=== PATIENT | female | born 1945 | race American Indian/Alaskan Native ===

== ENCOUNTER 2017-04-24 20:14 | Inpatient (IN) | payer MEDICARE, MEDICAID ==
--- NOTE | 2017-04-24 20:38 | Emergency Department Report ---
ED Altered Mental Status HPI - General Stated Complaint: AMS Time Seen by Provider: 04/24/17 20:27 Source: patient, EMS, old records reviewed - History of Present Illness Initial Comments: Patient is 71 years old female history of coronary artery disease, diabetes and schizophrenia. Presented to the ER for evaluation of decreased responsiveness at the [facility], [facility] staff stated that she was difficult to arouse for a few minutes, they stated she usually talkative and aggressive with the staff. When EMS arrived patient is alert oriented and in no acute distress. His stroke screen was negative. When patient arrived in the ER she is completely alert, oriented to time place and person. She denied any headache, focal weakness, focal numbness, difficulty speaking, no bowel or bladder incontinence. Patient denied chest pain. MD Complaint: altered mental status, decreased responsiveness - Related Data Home Medications Medication Instructions Recorded Confirmed Last Taken Furosemide [Lasix] 40 mg PO DAILY 10/23/14 04/12/15 10/23/14 Spironolactone [Aldactone] 25 mg PO BID 10/23/14 04/12/15 10/23/14 Previous Rx's Medication Instructions Recorded Last Taken Type Alendronate Sodium [Fosamax] 70 mg PO QWEEK #7 tablet 04/13/15 Unknown Rx Aspirin [Aspirin BABY CHEW TAB] 81 mg PO QDAY #30 tab.chew 04/13/15 Unknown Rx Carvedilol [Coreg] 25 mg PO BID #60 tablet 04/13/15 Unknown Rx Digoxin [Lanoxin] 0.125 mg PO DAILY #30 tablet 04/13/15 Unknown Rx Ferrous Sulfate [Feosol 325 MG tab] 325 mg PO QDAY #30 tablet 04/13/15 Unknown Rx HYDROcodone/APAP 5-325 [[place]iff[place] 1 each PO Q6HR PRN #60 tablet 04/13/15 Unknown Rx 5-325 mg TAB] ISOSORBIDE MONOnitrate [Imdur ER] 30 mg PO DAILY #30 tablet 04/13/15 Unknown Rx Insulin Glargine [Lantus VIAL] 35 units SUB-Q QHS #30 units 04/13/15 Unknown Rx Mirtazapine [Remeron] 30 mg PO QHS #30 tab.rapdis 04/13/15 Unknown Rx Omeprazole [PriLOSEC] 20 mg PO BID #60 capsule. 04/13/15 Unknown Rx Pravastatin Sodium [Pravastatin] 10 mg PO QDAY #30 tablet 04/13/15 Unknown Rx clonazePAM [KlonoPIN] 0.5 mg PO Q6H PRN #60 tablet 04/13/15 Unknown Rx hydrALAZINE [Apresoline TAB] 100 mg PO TID #90 tab 04/13/15 Unknown Rx risperiDONE [RisperDAL] 0.25 mg PO BID #60 tablet 04/13/15 Unknown Rx Allergies Allergy/AdvReac Type Severity Reaction Status Date / Time No Known Allergies Allergy Verified 04/11/15 17:17 ED Review of Systems ROS: Stated complaint: AMS Other details as noted in HPI Comment: All other systems reviewed and negative Constitutional: denies: chills, fever Respiratory: denies: cough, orthopnea, shortness of breath, SOB with exertion, SOB at rest, wheezing Cardiovascular: denies: chest pain, palpitations, dyspnea on exertion, orthopnea , edema, syncope, paroxysmal nocturnal dyspnea Gastrointestinal: denies: abdominal pain, nausea, vomiting, diarrhea, constipation, hematemesis, melena, hematochezia Genitourinary: denies: urgency, frequency, hematuria Neurological: denies: headache, weakness, numbness, paresthesias, confusion ED Past Medical Hx - Past Medical History Hx Hypertension: Yes Hx Heart Attack/AMI: Yes Hx Congestive Heart Failure: Yes Hx Diabetes: Yes Hx Pulmonary Embolism: Yes Hx GERD: Yes Hx Seizures: No Additional medical history: HLD, CAD. ANEMIA - Surgical History Hx Pacemaker: Yes Additional Surgical History: pacemaker, bypass - Social History Smoking Status: Current Every Day Smoker - Medications Home Medications: Home Medications Medication Instructions Recorded Confirmed Last Taken Type Furosemide [Lasix] 40 mg PO DAILY 10/23/14 04/12/15 10/23/14 History Spironolactone [Aldactone] 25 mg PO BID 10/23/14 04/12/15 10/23/14 History Alendronate Sodium [Fosamax] 70 mg PO QWEEK #7 tablet 04/13/15 Unknown Rx Aspirin [Aspirin BABY CHEW TAB] 81 mg PO QDAY #30 tab.chew 04/13/15 Unknown Rx Carvedilol [Coreg] 25 mg PO BID #60 tablet 04/13/15 Unknown Rx Digoxin [Lanoxin] 0.125 mg PO DAILY #30 tablet 04/13/15 Unknown Rx Ferrous Sulfate [Feosol 325 MG tab] 325 mg PO QDAY #30 tablet 04/13/15 Unknown Rx HYDROcodone/APAP 5-325 [[place] 1 each PO Q6HR PRN #60 tablet 04/13/15 Unknown Rx 5-325 mg TAB] ISOSORBIDE MONOnitrate [Imdur ER] 30 mg PO DAILY #30 tablet 04/13/15 Unknown Rx Insulin Glargine [Lantus VIAL] 35 units SUB-Q QHS #30 units 04/13/15 Unknown Rx Mirtazapine [Remeron] 30 mg PO QHS #30 tab.rapdis 04/13/15 Unknown Rx Omeprazole [PriLOSEC] 20 mg PO BID #60 capsule.dr 04/13/15 Unknown Rx Pravastatin Sodium [Pravastatin] 10 mg PO QDAY #30 tablet 04/13/15 Unknown Rx clonazePAM [KlonoPIN] 0.5 mg PO Q6H PRN #60 tablet 04/13/15 Unknown Rx hydrALAZINE [Apresoline TAB] 100 mg PO TID #90 tab 04/13/15 Unknown Rx risperiDONE [RisperDAL] 0.25 mg PO BID #60 tablet 04/13/15 Unknown Rx ED Physical Exam - General General appearance: alert, in no apparent distress - Head Head exam: Present: atraumatic, normocephalic, normal inspection - Eye Eye exam: Present: normal appearance, PERRL, EOMI - ENT ENT exam: Present: normal exam, normal orophraynx, mucous membranes moist - Neck Neck exam: Present: normal inspection, full ROM. Absent: tenderness, meningismus, lymphadenopathy - Respiratory Respiratory exam: Present: normal lung sounds bilaterally. Absent: respiratory distress, wheezes, rales, rhonchi, stridor, chest wall tenderness, accessory muscle use, decreased breath sounds, prolonged expiratory - Cardiovascular Cardiovascular Exam: Present: regular rate, normal rhythm, normal heart sounds - GI/Abdominal GI/Abdominal exam: Present: soft, normal bowel sounds. Absent: distended, tenderness, guarding, rebound, rigid, organomegaly, mass, bruit, pulsatile mass , hernia - Extremities Exam Extremities exam: Present: normal inspection, full ROM, normal capillary refill - Back Exam Back exam: Present: normal inspection. Absent: CVA tenderness (R), CVA tenderness (L) - Neurological Exam Neurological exam: Present: alert, oriented X3, CN II-XII intact, normal gait - Psychiatric Psychiatric exam: Present: normal affect, normal mood. Absent: agitated, anxious, flat affect, manic, homicidal ideation, suicidal ideation - Skin Skin exam: Present: warm, intact, normal color ED Course Vital Signs 04/24/17 04/24/17 04/24/17 20:28 20:30 20:45 Temperature Pulse Rate 70 73 71 Respiratory 17 8 L 16 Rate Blood Pressure 155/67 Blood Pressure [Right] O2 Sat by Pulse Oximetry 04/24/17 04/24/17 04/24/17 20:56 21:01 21:15 Temperature 98.0 F 98.0 F Pulse Rate 71 72 68 Respiratory 13 19 12 Rate Blood Pressure 155/67 155/67 Blood Pressure 155/67 [Right] O2 Sat by Pulse 94 98 99 Oximetry 04/24/17 04/24/17 04/24/17 21:30 21:45 22:00 Temperature Pulse Rate 67 63 68 Respiratory 11 L 17 18 Rate Blood Pressure 152/92 144/102 180/82 Blood Pressure [Right] O2 Sat by Pulse 90 96 99 Oximetry 04/24/17 04/24/17 04/24/17 22:15 22:31 22:45 Temperature Pulse Rate 71 78 82 Respiratory 18 12 13 Rate Blood Pressure 181/81 125/78 181/81 Blood Pressure [Right] O2 Sat by Pulse 99 99 100 Oximetry 04/24/17 04/24/17 04/24/17 23:00 23:15 23:39 Temperature Pulse Rate 69 70 Respiratory 15 16 Rate Blood Pressure 184/86 188/83 188/83 Blood Pressure [Right] O2 Sat by Pulse 100 Oximetry 04/24/17 04/25/17 23:45 00:00 Temperature Pulse Rate 78 Respiratory 13 Rate Blood Pressure 190/87 191/107 Blood Pressure [Right] O2 Sat by Pulse 99 Oximetry - Reevaluation(s) Reevaluation #1: 04/24/17 22:25 Patient stated that she is feeling fine and denied any chest pain or shortness of breath however her rhythm is changing from sinus rhythm at 65 beats per minutes to really paced rhythm with heart rate more than 100. Pacemaker company is called to interrogate the pacemaker. Reevaluation #2: 04/25/17 00:35 Pacemaker interrogated, no technical problem. Interrogation so couple of episodes of atrial tachycardia. - Lab Data Result diagrams: 04/24/17 21:09 04/24/17 21:09 Lab Results 04/24/17 04/24/17 04/24/17 Range/Units 20:38 21:09 21:09 WBC 5.9 (4.5-11.0) K/mm3 RBC 4.33 (3.65-5.03) M/mm3 Hgb 12.3 (10.1-14.3) gm/dl Hct 38.3 (30.3-42.9) % MCV 88 (79-97) fl MCH 28 (28-32) pg MCHC 32 (30-34) % RDW 13.1 L (13.2-15.2) % Plt Count 206 (140-440) K/mm3 Lymph % (Auto) 37.5 H (13.4-35.0) % [place] % (Auto) 11.8 H (0.0-7.3) % Eos % (Auto) 3.2 (0.0-4.3) % Baso % (Auto) 0.3 (0.0-1.8) % Lymph # 2.2 (1.2-5.4) K/mm3 [place] # 0.7 (0.0-0.8) K/mm3 Eos # 0.2 (0.0-0.4) K/mm3 Baso # 0.0 (0.0-0.1) K/mm3 Seg Neutrophils % 47.2 (40.0-70.0) % Seg Neutrophils # 2.8 (1.8-7.7) K/mm3 Sodium 141 (137-145) mmol/L Potassium 5.2 H (3.6-5.0) mmol/L Chloride 99.9 (98-107) mmol/L Carbon Dioxide 27 (22-30) mmol/L Anion Gap 19 mmol/L BUN 46 H (7-17) mg/dL Creatinine 1.7 H (0.7-1.2) mg/dL Estimated GFR 36 ml/min BUN/Creatinine Ratio 27 % Glucose 194 H (65-100) mg/dL POC Glucose 181 H (70-105) Lactic Acid (0.7-2.0) mmol/L Calcium 9.2 (8.4-10.2) mg/dL Total Bilirubin 0.20 (0.1-1.2) mg/dL AST 31 (5-40) units/L ALT 18 (7-56) units/L Alkaline Phosphatase 92 (35-129) units/L Ammonia (25-60) umol/L Troponin T < 0.010 (0.00-0.029) ng/mL Total Protein 7.8 (6.3-8.2) g/dL Albumin 3.4 L (3.9-5) g/dL Albumin/Globulin Ratio 0.8 % Urine Color (Yellow) Urine Turbidity (Clear) Urine pH (5.0-7.0) Ur Specific [place] (1.003-1.030) Urine Protein (Negative) mg/dL Urine Glucose (UA) (Negative) mg/dL Urine Ketones (Negative) mg/dL Urine Blood (Negative) Urine Nitrite (Negative) Urine Bilirubin (Negative) Urine Urobilinogen (<2.0) mg/dL Ur Leukocyte Esterase (Negative) Urine WBC (Auto) (0.0-6.0) /HPF Urine RBC (Auto) (0.0-6.0) /HPF U Epithel Cells (Auto) (0-13.0) /HPF 04/24/17 04/24/17 04/24/17 Range/Units 21:09 21:09 22:21 WBC (4.5-11.0) K/mm3 RBC (3.65-5.03) M/mm3 Hgb (10.1-14.3) gm/dl Hct (30.3-42.9) % MCV (79-97) fl MCH (28-32) pg MCHC (30-34) % RDW (13.2-15.2) % Plt Count (140-440) K/mm3 Lymph % (Auto) (13.4-35.0) % [place] % (Auto) (0.0-7.3) % Eos % (Auto) (0.0-4.3) % Baso % (Auto) (0.0-1.8) % Lymph # (1.2-5.4) K/mm3 [place] # (0.0-0.8) K/mm3 Eos # (0.0-0.4) K/mm3 Baso # (0.0-0.1) K/mm3 Seg Neutrophils % (40.0-70.0) % Seg Neutrophils # (1.8-7.7) K/mm3 Sodium (137-145) mmol/L Potassium (3.6-5.0) mmol/L Chloride (98-107) mmol/L Carbon Dioxide (22-30) mmol/L Anion Gap mmol/L BUN (7-17) mg/dL Creatinine (0.7-1.2) mg/dL Estimated GFR ml/min BUN/Creatinine Ratio % Glucose (65-100) mg/dL POC Glucose (70-105) Lactic Acid 2.70 H* (0.7-2.0) mmol/L Calcium (8.4-10.2) mg/dL Total Bilirubin (0.1-1.2) mg/dL AST (5-40) units/L ALT (7-56) units/L Alkaline Phosphatase (35-129) units/L Ammonia 27.0 (25-60) umol/L Troponin T (0.00-0.029) ng/mL Total Protein (6.3-8.2) g/dL Albumin (3.9-5) g/dL Albumin/Globulin Ratio % Urine Color Yellow (Yellow) Urine Turbidity Clear (Clear) Urine pH 6.0 (5.0-7.0) Ur Specific [place] 1.010 (1.003-1.030) Urine Protein <15 mg/dl (Negative) mg/dL Urine Glucose (UA) Neg (Negative) mg/dL Urine Ketones Neg (Negative) mg/dL Urine Blood Neg (Negative) Urine Nitrite Neg (Negative) Urine Bilirubin Neg (Negative) Urine Urobilinogen < 2.0 (<2.0) mg/dL Ur Leukocyte Esterase Neg (Negative) Urine WBC (Auto) 1.0 (0.0-6.0) /HPF Urine RBC (Auto) 2.0 (0.0-6.0) /HPF U Epithel Cells (Auto) 1.0 (0-13.0) /HPF - EKG Data -: EKG Interpreted by Me EKG shows normal: sinus rhythm Interpretation: no acute changes - Radiology Data Radiology results: report reviewed CT brain no acute finding, chest x-ray no acute findings. - Medical Decision Making Discussed with Dr. Margot Bland, I presented the patient, she agreed to admit the patient to her service. Critical care attestation.: If time is entered above; I have spent that time in minutes in the direct care of this critically ill patient, excluding procedure time. ED Disposition Clinical Impression: Altered mental status Disposition: 09 OP ADMIT IP TO THIS HOSP Is pt being admited?: Yes Condition: Stable Referrals: PRIMARY CARE, [Primary Care Provider] - 3-5 Days
--- NOTE | 2017-04-24 21:22 | XRay Report ---
FINAL REPORT PROCEDURE: Chest. TECHNIQUE: Portable AP view. HISTORY: Altered Mental Status COMPARISON: No prior studies are available for comparison. FINDINGS: The heart size is borderline. There is mild tortuosity and calcification in the thoracic aorta. The lungs are clear and well expanded. There may be a granuloma in the left costophrenic angle. There are no pleural effusions. There is a left-sided pacemaker with dual electrode leads. The soft tissues are unremarkable. There is a single broken median sternotomy wire. IMPRESSION: No evidence of acute disease.
[2017-04-24 21:41] LABS: Basophils % (Auto) 0.3 % (0.0-1.8); Eosinophils % (Auto) 3.2 % (0.0-4.3); Hematocrit 38.3 % (30.3-42.9); Hemoglobin 12.3 gm/dl (10.1-14.3); Mean Corpuscular HGB Conc 32 % (30-34); Mean Corpuscular Hemoglobin 28 pg (28-32); Mean Corpuscular Volume 88 fl (79-97); Platelet Count 206 K/mm3 (140-440); Red Blood Count 4.33 M/mm3 (3.65-5.03); Red Cell Distribution Width 13.1 % (13.2-15.2); White Blood Count 5.9 K/mm3 (4.5-11.0)
[2017-04-24 21:57] LABS: Alanine Aminotransferase 18 units/L (7-56); Albumin 3.4 g/dL (3.9-5); Albumin/Globulin Ratio 0.8 %; Alkaline Phosphatase 92 units/L (35-129); Anion Gap 19 mmol/L; BUN/Creatinine Ratio 27; Blood Urea Nitrogen 46 mg/dL (7-17); Calcium 9.2 mg/dL (8.4-10.2); Carbon Dioxide 27 mmol/L (22-30); Chloride 99.9 mmol/L (98-107); Glucose 194 mg/dL (65-100); Potassium 5.2 mmol/L (3.6-5.0); Sodium 141 mmol/L (137-145); Total Protein 7.8 g/dL (6.3-8.2)
--- NOTE | 2017-04-24 22:15 | Cat Scan Report ---
FINAL REPORT PROCEDURE: CT head without contrast. TECHNIQUE: Computerized tomography of the head was performed without contrast material. HISTORY: Altered mental status. COMPARISON: No prior studies are available for comparison. FINDINGS: There is moderate cerebral atrophy. There is mild evidence of chronic ischemic white matter disease. There is some focal encephalomalacia in the anterior portion of the left temporal lobe. This may be secondary to an old stroke. There are no mass lesions. There is no intracranial hemorrhage. There are no signs of acute infarction. The calvarium appears intact with the exception of 2 right-sided humberto holes.. The mastoid air cells and paranasal sinuses are clear as far as visualized. IMPRESSION: Moderate cerebral atrophy and chronic ischemic changes as described. No evidence of acute disease.
[2017-04-24 22:55] LABS: Bilirubin,Urine NEG (Negative); Blood,Urine NEG (Negative); Ketones,Urine NEG (Negative); Leukocyte Esterase,Urine NEG (Negative); Nitrite,Urine NEG (Negative); Protein,Urine <15 mg/dL mg/dL (Negative); Urobilinogen,Urine < 2.0 mg/dL (<2.0)
[2017-04-25] MEDS ORDERED: ZOFRAN IV PRN (01:56)
[2017-04-25] MEDS ORDERED: DULCOLAX PR PRN (01:56)
[2017-04-25] MEDS ORDERED: MILK OF MAGNESIA PO PRN (01:56)
[2017-04-25 03:02] LABS: Creatine Kinase MB 1.8 ng/mL (0.0-4.0)
[2017-04-25 03:03] LABS: Creatine Kinase 63 units/L (30-135)
--- NOTE | 2017-04-25 05:29 | History and Physical Report ---
History of Present Illness Date of examination: 04/25/17 Date of admission: 04/25/17 01:56 History of present illness: 71-year-old male with a history of dementia, diabetes, CHF, hypertension, coronary heart disease was brought to the emergency room because she had a syncopal episode, it's unclear how long it lasted for. In the emergency room, [employer] was consulted, and interrogation of her device shows she had a run of atrial tachycardia Review Of Systems: Constitutional: no weight loss Ears, eyes, nose, mouth and throat: no nasal congestion, no nasal discharge, no sinus pressure, blurry vision, diplopia Neck: No neck pain or rigidity. Cardiovascular: chest pain, orthopnea, palpitations Respiratory: No shortness of breath, cough Gastrointestinal: abdominal pain, hematochezia Genitourinary : no dysuria, frequency , hematuria Musculoskeletal: no muscle ache Integumentary: no rash, no pruritis Neurological: no parathesias, focal weakness Endocrine: no cold or heat intolerance, no polyuria or polydipsia Hematologic/Lymphatic: no easy bruising, no easy bleeding, no gland swelling Allergic/Immunologic: no urticaria, no angioedema. PAST MEDICAL HISTORY:dementia, after lifting a diabetes, CHF, hypertension, coronary heart disease PAST SURGICAL HISTORY: Pacemaker FAILY HISTORY: Hypertension SOCIAL HISTORY: Denies alcohol, tobacco, drugs Medications and Allergies Allergies Allergy/AdvReac Type Severity Reaction Status Date / Time No Known Allergies Allergy Verified 04/11/15 17:17 Home Medications Medication Instructions Recorded Confirmed Last Taken Type Furosemide [Lasix] 40 mg PO DAILY 10/23/14 04/25/17 04/24/17 History Aspirin [Aspirin BABY CHEW TAB] 81 mg PO QDAY #30 tab.chew 04/13/15 04/25/17 Unknown Rx Acetaminophen [Non-Aspirin] 650 mg PO Q6H 04/25/17 04/25/17 Unknown History Divalproex [Mono Belcher] 125 mg PO BID 04/25/17 04/25/17 Unknown History Exelon Patch 4.6mg/24hr 4.6 mg TD DAILY 04/25/17 04/25/17 Unknown History Insulin Glargine,Hum.rec.anlog 9 units SQ QHS 04/25/17 04/25/17 Unknown History [Lantus] Insulin Lispro [Humalog] 5 unit SQ AC 04/25/17 04/25/17 Unknown History Lisinopril [Prinivil] 5 mg PO DAILY 04/25/17 04/25/17 Unknown History Memantine HCl [Namenda Xr] 14 mg PO QHS 04/25/17 04/25/17 Unknown History Metoprolol [Lopressor TAB] 6.25 mg PO BID 04/25/17 04/25/17 Unknown History Oxybutynin Chloride [Ditropan Xl] 15 mg PO QDAY 04/25/17 04/25/17 04/24/17 History Potassium Chloride [Klor-Con] 20 meq PO DAILY 04/25/17 04/25/17 Unknown History Pravastatin [Pravachol] 20 mg PO QHS 04/25/17 04/25/17 Unknown History QUEtiapine [SEROquel] 25 mg PO BID 04/25/17 04/26/17 Unknown History Carvedilol [Coreg] 25 mg PO BID tablet 04/28/17 Unknown Rx Digoxin [Lanoxin] 0.125 mg PO DAILY@1700 tablet 04/28/17 Unknown Rx Ferrous Sulfate [Feosol 325 MG tab] 325 mg PO QDAY tablet 04/28/17 Unknown Rx ISOSORBIDE MONOnitrate [Imdur ER] 30 mg PO DAILY tablet 04/28/17 Unknown Rx Insulin Detemir [Levemir] 35 units SUB-Q QHS units 04/28/17 Unknown Rx Magnesium Hydroxide [Milk of 30 ml PO Q4H PRN oral.liqd 04/28/17 Unknown Rx Magnesia] Mirtazapine [Remeron] 30 mg PO QHS tablet 04/28/17 Unknown Rx Pantoprazole [Protonix TAB] 20 mg PO BID tablet. 04/28/17 Unknown Rx Pravastatin [Pravachol] 10 mg PO QDAY tablet 04/28/17 Unknown Rx Spironolactone [Aldactone] 25 mg PO BID tablet 04/28/17 Unknown Rx clonazePAM [KlonoPIN] 0.5 mg PO Q6H PRN tablet 04/28/17 Unknown Rx Loperamide [Imodium] 2 mg PO Q2HR #10 capsule 05/03/17 Unknown Rx Active Meds: Active Medications Acetaminophen (Tylenol) 650 mg PO Q4H PRN PRN Reason: Pain MILD(1-3)/Fever >100.5/[place] Bisacodyl (Dulcolax) 10 mg [place] QDAY PRN PRN Reason: Constipation unrelieved by MOM Enoxaparin Sodium (Lovenox) 30 mg SUB-Q QDAY DECLAN Magnesium Hydroxide (Milk Of Magnesia) 30 ml PO Q4H PRN PRN Reason: Constipation Ondansetron HCl (Zofran) 4 mg IV Q8H PRN PRN Reason: N/V unrelieved by Reglan Exam - Physical Exam Narrative exam: Gen. appearance: Patient lying in bed in no acute distress HEENT: Normocephalic/atraumatic, pupils equal round reactive to light, extra alkaline movement intact, no scleral icterus, no JVD or thyromegaly or nodule, neck is supple, mucous membrane moist, no erythema or exudate Heart: S1-S2, regular rate and rhythm Lungs: Clear to auscultation bilateral breathing comfortable Abdomen: Positive bowel sounds, nontender, nondistended, no organomegaly Extremities: No edema, cyanosis, clubbing Neuro:: Oriented 3 , cranial nerves II-12 intact, speech, motor intact Skin: No rash, nodules, warm dry - Constitutional Vitals: Temp Pulse Resp BP Pulse Ox 98.0 F 72 23 181/76 97 04/24/17 21:15 04/25/17 01:45 04/25/17 01:45 04/25/17 01:45 04/25/17 01:45 Results - Labs CBC & Chem 7: 04/28/17 06:49 04/28/17 06:49 Labs: Abnormal lab results 04/24/17 04/24/17 04/24/17 Range/Units 20:38 21:09 21:09 RDW 13.1 L (13.2-15.2) % Lymph % (Auto) 37.5 H (13.4-35.0) % [place] % (Auto) 11.8 H (0.0-7.3) % Potassium 5.2 H (3.6-5.0) mmol/L BUN 46 H (7-17) mg/dL Creatinine 1.7 H (0.7-1.2) mg/dL Glucose 194 H (65-100) mg/dL POC Glucose 181 H (70-105) Lactic Acid (0.7-2.0) mmol/L Albumin 3.4 L (3.9-5) g/dL 04/24/17 Range/Units 21:09 RDW (13.2-15.2) % Lymph % (Auto) (13.4-35.0) % [place] % (Auto) (0.0-7.3) % Potassium (3.6-5.0) mmol/L BUN (7-17) mg/dL Creatinine (0.7-1.2) mg/dL Glucose (65-100) mg/dL POC Glucose (70-105) Lactic Acid 2.70 H* (0.7-2.0) mmol/L Albumin (3.9-5) g/dL - Imaging and Cardiology EKG: image reviewed Chest x-ray: image reviewed CT Scan - head: report reviewed Assessment and Plan Assessment Syncope/atrial tachycardia diabetes CHF hypertension, coronary heart disease Plan Admit to medicine Check cardiac enzymes, d-dimer, consult cardiology Check fingersticks and initiate insulin sliding scale Continue appropriate outpatient medications Dvt prophylaxis
[2017-04-25] MEDS ORDERED: D50W (25GM) Vial IV PRN (05:30)
[2017-04-25] MEDS: NOVOLOG SUB-Q SCH ×4 (08:30→22:25)
[2017-04-25 08:38] LABS: Creatine Kinase MB 1.8 ng/mL (0.0-4.0)
[2017-04-25 08:39] LABS: Creatine Kinase 67 units/L (30-135)
--- NOTE | 2017-04-25 10:54 | Consultation ---
History of Present Illness Consult date: 04/25/17 Consult reason: syncope History of present illness: 71 year old -Polish female presenting after an episode of syncope. She denies any chest pains any palpitations or dizziness. As per records from the emergency room there was no documentation of incontinence or seizure-like activity. Past History Past Medical History: CAD, diabetes, hypertension, hyperlipidemia Past Surgical History: Other (pacemaker) Medications and Allergies Allergies Allergy/AdvReac Type Severity Reaction Status Date / Time No Known Allergies Allergy Verified 04/11/15 17:17 Home Medications Medication Instructions Recorded Confirmed Last Taken Type Furosemide [Lasix] 40 mg PO DAILY 10/23/14 04/12/15 10/23/14 History Spironolactone [Aldactone] 25 mg PO BID 10/23/14 04/12/15 10/23/14 History Alendronate Sodium [Fosamax] 70 mg PO QWEEK #7 tablet 04/13/15 Unknown Rx Aspirin [Aspirin BABY CHEW TAB] 81 mg PO QDAY #30 tab.chew 04/13/15 Unknown Rx Carvedilol [Coreg] 25 mg PO BID #60 tablet 04/13/15 Unknown Rx Digoxin [Lanoxin] 0.125 mg PO DAILY #30 tablet 04/13/15 Unknown Rx Ferrous Sulfate [Feosol 325 MG tab] 325 mg PO QDAY #30 tablet 04/13/15 Unknown Rx HYDROcodone/APAP 5-325 [[place] 1 each PO Q6HR PRN #60 tablet 04/13/15 Unknown Rx 5-325 mg TAB] ISOSORBIDE MONOnitrate [Imdur ER] 30 mg PO DAILY #30 tablet 04/13/15 Unknown Rx Insulin Glargine [Lantus VIAL] 35 units SUB-Q QHS #30 units 04/13/15 Unknown Rx Mirtazapine [Remeron] 30 mg PO QHS #30 tab.rapdis 04/13/15 Unknown Rx Omeprazole [PriLOSEC] 20 mg PO BID #60 capsule. 04/13/15 Unknown Rx Pravastatin Sodium [Pravastatin] 10 mg PO QDAY #30 tablet 04/13/15 Unknown Rx clonazePAM [KlonoPIN] 0.5 mg PO Q6H PRN #60 tablet 04/13/15 Unknown Rx hydrALAZINE [Apresoline TAB] 100 mg PO TID #90 tab 04/13/15 Unknown Rx risperiDONE [RisperDAL] 0.25 mg PO BID #60 tablet 04/13/15 Unknown Rx Active Meds: Active Medications Acetaminophen (Tylenol) 650 mg PO Q4H PRN PRN Reason: Pain MILD(1-3)/Fever >100.5/[place] Aspirin (Baby Aspirin) 81 mg PO QDAY [facility] Bisacodyl (Dulcolax) 10 mg [place] QDAY PRN PRN Reason: Constipation unrelieved by MOM Carvedilol (Coreg) 25 mg PO BID [facility] Clonazepam (Klonopin) 0.5 mg PO Q6H PRN PRN Reason: Anxiety Dextrose (D50w (25gm) Vial) 25 gm IV PRN PRN PRN Reason: Hypoglycemia Digoxin (Lanoxin) 0.125 mg PO DAILY@1700 [place] Enoxaparin Sodium (Lovenox) 30 mg SUB-Q QDAY [facility] Ferrous Sulfate (Feosol) 325 mg PO QDAY [facility] Furosemide (Lasix) 40 mg PO DAILY [facility] Insulin Aspart (Novolog) 0 units SUB-Q ACHS [facility] PRN Reason: Protocol Last Admin: 04/25/17 08:30 Dose: Not Given Insulin Detemir (Levemir) 35 units SUB-Q QHS [facility] Isosorbide Mononitrate (Imdur) 30 mg PO DAILY [facility] Magnesium Hydroxide (Milk Of Magnesia) 30 ml PO Q4H PRN PRN Reason: Constipation Mirtazapine (Remeron) 30 mg PO QHS [facility] Ondansetron HCl (Zofran) 4 mg IV Q8H PRN PRN Reason: N/V unrelieved by Reglan Pantoprazole Sodium (Protonix) 20 mg PO BID [facility] Pravastatin Sodium (Pravachol) 10 mg PO QDAY [facility] Spironolactone (Aldactone) 25 mg PO BID [facility] Review of Systems Constitutional: no weight loss, no weight gain, no weakness, no malaise Ears, nose, mouth and throat: deferred Breasts: deferred Cardiovascular: syncope, no chest pain, no orthopnea, no palpitations Respiratory: no cough, no shortness of breath, no wheezing Gastrointestinal: no abdominal pain, no nausea, no vomiting, no melena, no hematochezia Genitourinary Female: no pelvic pain, no flank pain, no menorrhagia, no dysuria , no urinary frequency Musculoskeletal: no neck stiffness, no neck pain, no low back pain Integumentary: no rash, no pruritis Neurological: no weakness, no parathesias, no seizures Endocrine: no cold intolerance, no heat intolerance, no polyphagia, no polydipsia, no polyuria, no nocturia Hematologic/Lymphatic: no easy bruising, no easy bleeding Physical Examination Vital Signs Pulse Resp 70 17 04/24/17 20:28 04/24/17 20:28 General appearance: no acute distress, well-nourished HEENT: Positive: PERRL, Mucus Membranes Moist Neck: Positive: neck supple, trachea midline Cardiac: Positive: Reg Rate and Rhythm, S1/S2. Negative: Audible Murmur Lungs: Positive: clear to auscultation, Normal Breath Sounds Neuro: Positive: Grossly Intact Abdomen: Positive: Soft, Active Bowel Sounds. Negative: Tender, Distended Female genitourinary: deferred Skin: Positive: Clear Incision: Cardiac Cath Site Musculoskeletal: No Pain, Normal Range of Motion Extremities: Present: normal. Absent: edema Results 04/24/17 21:09 04/24/17 21:09 Cardiac Enzymes 04/24/17 04/25/17 04/25/17 Range/Units 21:09 02:32 07:49 AST 31 (5-40) units/L CK-MB (CK-2) 1.8 1.8 (0.0-4.0) ng/mL CBC 04/24/17 Range/Units 21:09 WBC 5.9 (4.5-11.0) K/mm3 RBC 4.33 (3.65-5.03) M/mm3 Hgb 12.3 (10.1-14.3) gm/dl Hct 38.3 (30.3-42.9) % Plt Count 206 (140-440) K/mm3 Lymph # 2.2 (1.2-5.4) K/mm3 [place] # 0.7 (0.0-0.8) K/mm3 Eos # 0.2 (0.0-0.4) K/mm3 Baso # 0.0 (0.0-0.1) K/mm3 Comprehensive Metabolic Panel 04/24/17 Range/Units 21:09 Sodium 141 (137-145) mmol/L Potassium 5.2 H (3.6-5.0) mmol/L Chloride 99.9 (98-107) mmol/L Carbon Dioxide 27 (22-30) mmol/L BUN 46 H (7-17) mg/dL Creatinine 1.7 H (0.7-1.2) mg/dL Glucose 194 H (65-100) mg/dL Calcium 9.2 (8.4-10.2) mg/dL AST 31 (5-40) units/L ALT 18 (7-56) units/L Alkaline Phosphatase 92 (35-129) units/L Total Protein 7.8 (6.3-8.2) g/dL Albumin 3.4 L (3.9-5) g/dL EKG interpretations - Telemetry EKG Rhythm: Sinus Rhythm Assessment and Plan 1. Syncope 2. Essential hypertension 3. Status post pacemaker insertion 4. Type 2 diabetes mellitus 5. Renal insufficiency rule out acute on chronic renal failure Plan. Head CT scan showed no acute intracranial hemorrhage. [employer] interrogation of pacemaker showed a supraventricular tachycardia Check echocardiogram. Rule out underlying ischemic coronary artery disease.
[2017-04-25] MEDS: COREG PO SCH ×2 (10:56→22:25)
[2017-04-25] MEDS: BABY ASPIRIN PO SCH (10:56)
[2017-04-25] MEDS: LOVENOX SUB-Q SCH (10:57)
[2017-04-25] MEDS: ALDACTONE PO SCH ×2 (13:12→22:25)
[2017-04-25] MEDS: LASIX PO SCH (13:15)
[2017-04-25] MEDS: IMDUR PO SCH (13:15)
[2017-04-25] MEDS: FEOSOL PO SCH (13:15)
[2017-04-25] MEDS: PRAVACHOL PO SCH (13:15)
[2017-04-25] MEDS: PROTONIX PO SCH ×2 (13:15→22:25)
--- NOTE | 2017-04-25 14:45 | Event Note ---
Date: 04/25/17 71-year-old history dementia diabetes hypertension congestive heart failure and coronary artery disease presents with syncope. Patient pacemaker interrogation showed atrial tachycardia. Cardiology consult recommended and ruling out ischemic heart disease. Patient for stress test in a.m.
[2017-04-25] MEDS: LANOXIN PO SCH (17:20)
[2017-04-25] MEDS ORDERED: INSULIN GLARGINE 35 UNIT SUB-Q SCH (22:00)
[2017-04-25] MEDS: LEVEMIR SUB-Q SCH (22:24)
[2017-04-25] MEDS: REMERON PO SCH (22:25)
[2017-04-26 06:08] LABS: Basophils % (Auto) 0.4 % (0.0-1.8); Eosinophils % (Auto) 2.5 % (0.0-4.3); Hematocrit 34.5 % (30.3-42.9); Hemoglobin 11.6 gm/dl (10.1-14.3); Mean Corpuscular HGB Conc 34 % (30-34); Mean Corpuscular Hemoglobin 29 pg (28-32); Mean Corpuscular Volume 87 fl (79-97); Platelet Count 193 K/mm3 (140-440); Red Blood Count 3.97 M/mm3 (3.65-5.03); Red Cell Distribution Width 12.6 % (13.2-15.2); White Blood Count 5.4 K/mm3 (4.5-11.0)
[2017-04-26 06:29] LABS: Calcium 8.9 mg/dL (8.4-10.2); Chloride 103.7 mmol/L (98-107)
[2017-04-26 06:49] LABS: Potassium 4.1 mmol/L (3.6-5.0)
[2017-04-26] MEDS: NOVOLOG SUB-Q SCH ×4 (07:30→21:30)
[2017-04-26] MEDS: PRAVACHOL PO SCH (10:03)
[2017-04-26] MEDS: LASIX PO SCH (10:04)
[2017-04-26] MEDS: FEOSOL PO SCH (10:04)
[2017-04-26] MEDS: PROTONIX PO SCH ×2 (10:07→21:33)
[2017-04-26] MEDS: ALDACTONE PO SCH ×2 (10:07→21:32)
[2017-04-26] MEDS: BABY ASPIRIN PO SCH (10:08)
[2017-04-26] MEDS: COREG PO SCH ×2 (10:08→21:32)
[2017-04-26] MEDS: LOVENOX SUB-Q SCH (10:10)
[2017-04-26] MEDS: IMDUR PO SCH (10:10)
--- NOTE | 2017-04-26 10:51 | Progress Note ---
Assessment and Plan Alteration of mental status Presence of Pacemaker Hx of CAD with remote CABG Hx of Cardiomyopathy EF 20-25% on echo 09/2016 at [facility] Hypertension Diabetes Recommendations: Obtain records from [facility]. Neurology evaluation of AMS. Subjective Date of service: 04/26/17 Interval history: Patient denies chest pain and shortness of breath. Objective Vital Signs Temp Pulse Resp BP BP Pulse Ox 04/26/17 10:10 70 108/56 04/26/17 10:08 70 108/56 04/26/17 09:00 97.9 F 70 18 108/56 92 04/25/17 23:54 97.9 F 71 135/57 95 04/25/17 21:37 98.4 F 66 16 128/70 96 04/25/17 20:41 69 10 L 116/60 99 04/25/17 20:30 69 11 L 132/66 97 04/25/17 20:21 73 12 127/64 99 04/25/17 20:11 72 15 110/66 98 04/25/17 20:00 70 15 116/60 96 04/25/17 19:51 67 13 120/59 97 04/25/17 19:41 70 18 110/66 98 04/25/17 19:30 75 15 110/66 96 04/25/17 19:21 74 15 127/65 98 04/25/17 19:15 70 11 L 127/65 97 04/25/17 19:05 98.4 F 70 12 112/58 99 04/25/17 19:00 71 15 112/58 98 04/25/17 18:45 69 14 112/48 94 04/25/17 18:30 72 19 117/54 95 04/25/17 18:15 71 15 111/53 96 04/25/17 18:00 72 15 120/55 97 04/25/17 17:45 70 14 113/54 96 04/25/17 17:30 69 16 125/63 97 04/25/17 17:20 71 130/67 04/25/17 17:15 68 13 140/67 99 04/25/17 17:00 75 20 136/72 96 04/25/17 16:45 65 14 123/57 96 04/25/17 16:30 67 9 L 153/68 97 04/25/17 16:15 65 15 138/67 98 04/25/17 16:00 67 16 129/66 96 04/25/17 15:45 68 23 142/67 97 04/25/17 15:30 68 17 131/69 98 04/25/17 15:15 69 20 121/68 98 04/25/17 15:01 70 13 129/69 98 04/25/17 14:45 70 14 87/52 97 04/25/17 14:30 72 19 96/53 97 04/25/17 14:15 78 9 L 108/61 97 04/25/17 14:00 77 24 133/67 97 04/25/17 13:45 78 17 133/67 04/25/17 13:30 75 20 132/69 96 04/25/17 13:15 98 H 12 147/91 97 04/25/17 13:12 71 130/63 04/25/17 13:00 71 14 130/63 04/25/17 12:45 78 12 140/70 04/25/17 12:30 78 12 131/65 96 04/25/17 12:15 76 14 155/68 96 04/25/17 12:00 72 13 165/66 96 04/25/17 11:45 69 13 158/74 98 04/25/17 11:30 69 14 167/78 97 04/25/17 11:15 80 18 161/81 97 04/25/17 11:00 88 20 174/88 98 04/25/17 10:56 88 174/88 - Physical Examination General: No Apparent Distress HEENT: Positive: PERRL Cardiac: Positive: Reg Rate and Rhythm Lungs: Positive: Decreased Breath Sounds Neuro: Positive: Grossly Intact Extremities: Absent: edema - Labs and Meds CBC 04/26/17 Range/Units 05:30 WBC 5.4 (4.5-11.0) K/mm3 RBC 3.97 (3.65-5.03) M/mm3 Hgb 11.6 (10.1-14.3) gm/dl Hct 34.5 (30.3-42.9) % Plt Count 193 (140-440) K/mm3 Lymph # 2.2 (1.2-5.4) K/mm3 Yell # 0.7 (0.0-0.8) K/mm3 Eos # 0.1 (0.0-0.4) K/mm3 Baso # 0.0 (0.0-0.1) K/mm3 Comprehensive Metabolic Panel 04/26/17 Range/Units 05:30 Sodium 143 (137-145) mmol/L Potassium 4.1 D (3.6-5.0) mmol/L Chloride 103.7 (98-107) mmol/L Carbon Dioxide 25 (22-30) mmol/L BUN 46 H (7-17) mg/dL Creatinine 1.4 H (0.7-1.2) mg/dL Glucose 112 H (65-100) mg/dL Calcium 8.9 (8.4-10.2) mg/dL - Imaging and Cardiology EKG: image reviewed
--- NOTE | 2017-04-26 14:08 | Progress Note ---
Assessment and Plan - Patient Problems (1) Syncope Current Visit: Yes Status: Acute Plan to address problem: Patient with near syncopal episode symptoms have resolved at this particular time. He should have pacemaker interrogated showed true tachycardia [employer]. Patient CAT scan of head was unremarkable chest x-ray unremarkable. Head CT showed moderate central atrophy and chronic ischemia. Etiology could've been atrial tachycardia dehydration. Hypoglycemia ruled out head CT nothing acute. (2) Altered mental status Current Visit: Yes Status: Acute Plan to address problem: Slightly exacerbation of dementia after atrial tachycardia. Patient appears to be baseline and alert at this particular time. (3) CAD (coronary artery disease) Current Visit: No Status: Acute Qualifiers: Coronary Disease-Associated Artery/Lesion type: coronary artery bypass graft [place] vs. transplanted heart: tribal heart Associated angina: without angina pectoris Qualified Code(s): I25.810 - Atherosclerosis of coronary artery bypass graft(s) without angina pectoris Plan to address problem: Has a history of coronary artery disease. Near syncopal episode. Had echocardiogram done several months ago ejection fraction 25%. He said to have stress test done after consultation with cardiology recommends stress test. Cardiomyopathy has not been worked up. (4) Dehydration Current Visit: No Status: Acute Plan to address problem: Prerenal azotemia. We'll start gentle diuresis at this particular time. Patient has a history of CHF at present is well compensated. (5) Diabetes 1.5, managed as type 2 Current Visit: Yes Status: Acute Plan to address problem: Significant with fair control diabetes Accu-Cheks were 186/101/200 and 120. No evidence of hypoglycemia. History Interval history: Patient doing well no new symptoms over p.m. Hospital course unremarkable no new events overnight. Hospitalist Physical - Constitutional Vitals: Temp Pulse Resp BP Pulse Ox 97.6 F 70 18 119/47 92 04/26/17 11:47 04/26/17 10:10 04/26/17 11:47 04/26/17 11:47 04/26/17 09:00 General appearance: Present: no acute distress, well-nourished - EENT Eyes: Present: PERRL, EOM intact ENT: hearing intact, clear oral mucosa, dentition normal - Neck Neck: Present: supple, normal ROM - Respiratory Respiratory: bilateral: CTA - Cardiovascular Rhythm: other (no further atrial fibrillation.) Heart Sounds: Present: S1 & S2 - Extremities Extremities: no ischemia ( Atrial tachycardia.), pulses intact, pulses symmetrical - Abdominal General gastrointestinal: soft, non-tender, non-distended, normal bowel sounds - Integumentary Integumentary: Present: clear, warm, dry - Psychiatric Psychiatric: appropriate mood/affect, intact judgment & insight, cooperative - Neurologic Neurologic: CNII-XII intact Results - Labs CBC & Chem 7: 04/26/17 05:30 04/26/17 05:30 Labs: Laboratory Last Values WBC 5.4 K/mm3 (4.5-11.0) 04/26/17 05:30 RBC 3.97 M/mm3 (3.65-5.03) 04/26/17 05:30 Hgb 11.6 gm/dl (10.1-14.3) 04/26/17 05:30 Hct 34.5 % (30.3-42.9) 04/26/17 05:30 MCV 87 fl (79-97) 04/26/17 05:30 MCH 29 pg (28-32) 04/26/17 05:30 MCHC 34 % (30-34) 04/26/17 05:30 RDW 12.6 % (13.2-15.2) L 04/26/17 05:30 Plt Count 193 K/mm3 (140-440) 04/26/17 05:30 Lymph % (Auto) 41.3 % (13.4-35.0) H 04/26/17 05:30 [place] % (Auto) 13.2 % (0.0-7.3) H 04/26/17 05:30 Eos % (Auto) 2.5 % (0.0-4.3) 04/26/17 05:30 Baso % (Auto) 0.4 % (0.0-1.8) 04/26/17 05:30 Lymph # 2.2 K/mm3 (1.2-5.4) 04/26/17 05:30 [place] # 0.7 K/mm3 (0.0-0.8) 04/26/17 05:30 Eos # 0.1 K/mm3 (0.0-0.4) 04/26/17 05:30 Baso # 0.0 K/mm3 (0.0-0.1) 04/26/17 05:30 Seg Neutrophils % 42.6 % (40.0-70.0) 04/26/17 05:30 Seg Neutrophils # 2.3 K/mm3 (1.8-7.7) 04/26/17 05:30 D-Dimer 182.55 ng/mlDDU (0-234) 04/25/17 07:49 Sodium 143 mmol/L (137-145) 04/26/17 05:30 Potassium 4.1 mmol/L (3.6-5.0) D 04/26/17 05:30 Chloride 103.7 mmol/L (98-107) 04/26/17 05:30 Carbon Dioxide 25 mmol/L (22-30) 04/26/17 05:30 Anion Gap 18 mmol/L 04/26/17 05:30 BUN 46 mg/dL (7-17) H 04/26/17 05:30 Creatinine 1.4 mg/dL (0.7-1.2) H 04/26/17 05:30 Estimated GFR 45 ml/min 04/26/17 05:30 BUN/Creatinine Ratio 33 % 04/26/17 05:30 Glucose 112 mg/dL (65-100) H 04/26/17 05:30 POC Glucose 104 (70-105) 04/26/17 14:03 Lactic Acid 2.70 mmol/L (0.7-2.0) H* 04/24/17 21:09 Calcium 8.9 mg/dL (8.4-10.2) 04/26/17 05:30 Total Bilirubin 0.20 mg/dL (0.1-1.2) 04/24/17 21:09 AST 31 units/L (5-40) 04/24/17 21:09 ALT 18 units/L (7-56) 04/24/17 21:09 Alkaline Phosphatase 92 units/L (35-129) 04/24/17 21:09 Ammonia 27.0 umol/L (25-60) 04/24/17 21:09 Total Creatine Kinase 67 units/L (30-135) 04/25/17 07:49 CK-MB (CK-2) 1.8 ng/mL (0.0-4.0) 04/25/17 07:49 CK-MB (CK-2) Rel Index 2.6 (0-4) 04/25/17 07:49 Troponin T < 0.010 ng/mL (0.00-0.029) 04/25/17 07:49 Total Protein 7.8 g/dL (6.3-8.2) 04/24/17 21:09 Albumin 3.4 g/dL (3.9-5) L 04/24/17 21:09 Albumin/Globulin Ratio 0.8 % 04/24/17 21:09 Urine Color Yellow (Yellow) 04/24/17 22:21 Urine Turbidity Clear (Clear) 04/24/17 22:21 Urine pH 6.0 (5.0-7.0) 04/24/17 22:21 Ur Specific [place] 1.010 (1.003-1.030) 04/24/17 22:21 Urine Protein <15 mg/dl mg/dL (Negative) 04/24/17 22:21 Urine Glucose (UA) Neg mg/dL (Negative) 04/24/17 22:21 Urine Ketones Neg mg/dL (Negative) 04/24/17 22:21 Urine Blood Neg (Negative) 04/24/17 22:21 Urine Nitrite Neg (Negative) 04/24/17 22:21 Urine Bilirubin Neg (Negative) 04/24/17 22:21 Urine Urobilinogen < 2.0 mg/dL (<2.0) 04/24/17 22:21 Ur Leukocyte Esterase Neg (Negative) 04/24/17 22:21 Urine WBC (Auto) 1.0 /HPF (0.0-6.0) 04/24/17 22:21 Urine RBC (Auto) 2.0 /HPF (0.0-6.0) 04/24/17 22:21 U Epithel Cells (Auto) 1.0 /HPF (0-13.0) 04/24/17 22:21
[2017-04-26] MEDS: LANOXIN PO SCH (17:50)
[2017-04-26] MEDS: LEVEMIR SUB-Q SCH (21:32)
[2017-04-26] MEDS: REMERON PO SCH (21:34)
[2017-04-27 07:32] LABS: Calcium 8.6 mg/dL (8.4-10.2); Chloride 103.3 mmol/L (98-107); Potassium 4.6 mmol/L (3.6-5.0)
[2017-04-27] MEDS: NOVOLOG SUB-Q SCH ×4 (07:50→21:54)
--- NOTE | 2017-04-27 08:18 | Progress Note ---
<STEFF LUNA - Last Filed: 04/27/17 13:26> Assessment and Plan Assessment and plan: Patient is a 71-year-old male with a history of dementia, after lifting a diabetes, CHF, hypertension, coronary heart disease was brought to the emergency room because she had a syncopal episode, it's unclear how long it lasted for. Syncope Near syncopal episode Patient syncopal episode symptoms have resolved at present time. CAT scan of head unremarkable Chest x-ray unremarkable. Head CT showed moderate central atrophy and chronic ischemia Pacemaker interrogated showed true tachycardia [employer]. Etiology most likely due to atrial tachycardia dehydration. Hypoglycemia ruled out head CT nothing acute. Altered mental status Improved Most likely due to exacerbation of dementia after atrial tachycardia Patient seems to be on her baseline alert and oriented to place and person at present time. CAD (coronary artery disease) Has a history of coronary artery disease. Near syncopal episode. Recent echocardiogram with ejection fraction 25%. She had stress test done today awaiting for findings Continue on Asprin and statins. Dehydration Prerenal azotemia. Gentle diuresis at this particular time. Patient has a history of CHF at present is well compensated. Diabetes mellitus Accu-Chek before meals and after Sliding-scale insulin/NovoLog ADA consistent carbohydrate/cardiac diet No evidence of hypoglycemia. Hypertension Continue on home antihypertensive medication IV hydralazine for SBP >160 Closely monitor blood pressure DVT prophylaxis Lovenox History Interval history: Patient denies chest pain or shortness of breath.Labs and nursing reviewed. Hospitalist Physical - Constitutional Vitals: Temp Pulse Resp BP Pulse Ox 98.9 F 71 19 123/57 92 04/27/17 04:08 04/27/17 04:08 04/27/17 04:08 04/27/17 04:08 04/27/17 04:08 General appearance: Present: no acute distress, well-nourished, other (alert and oriented to person and place.) - EENT Eyes: Present: PERRL ENT: hearing intact - Neck Neck: Present: supple - Respiratory Respiratory effort: normal Respiratory: bilateral: CTA - Cardiovascular Rhythm: regular Heart Sounds: Present: S1 & S2 - Abdominal General gastrointestinal: soft, non-tender - Integumentary Integumentary: Present: clear, warm, dry - Psychiatric Psychiatric: appropriate mood/affect - Neurologic Neurologic: moves all extremities - Allied Health Allied health notes reviewed: nursing Results - Labs CBC & Chem 7: 04/26/17 05:30 04/27/17 06:25 Labs: Laboratory Last Values WBC 5.4 K/mm3 (4.5-11.0) 04/26/17 05:30 RBC 3.97 M/mm3 (3.65-5.03) 04/26/17 05:30 Hgb 11.6 gm/dl (10.1-14.3) 04/26/17 05:30 Hct 34.5 % (30.3-42.9) 04/26/17 05:30 MCV 87 fl (79-97) 04/26/17 05:30 MCH 29 pg (28-32) 04/26/17 05:30 MCHC 34 % (30-34) 04/26/17 05:30 RDW 12.6 % (13.2-15.2) L 04/26/17 05:30 Plt Count 193 K/mm3 (140-440) 04/26/17 05:30 Lymph % (Auto) 41.3 % (13.4-35.0) H 04/26/17 05:30 [place] % (Auto) 13.2 % (0.0-7.3) H 04/26/17 05:30 Eos % (Auto) 2.5 % (0.0-4.3) 04/26/17 05:30 Baso % (Auto) 0.4 % (0.0-1.8) 04/26/17 05:30 Lymph # 2.2 K/mm3 (1.2-5.4) 04/26/17 05:30 [place] # 0.7 K/mm3 (0.0-0.8) 04/26/17 05:30 Eos # 0.1 K/mm3 (0.0-0.4) 04/26/17 05:30 Baso # 0.0 K/mm3 (0.0-0.1) 04/26/17 05:30 Seg Neutrophils % 42.6 % (40.0-70.0) 04/26/17 05:30 Seg Neutrophils # 2.3 K/mm3 (1.8-7.7) 04/26/17 05:30 D-Dimer 182.55 ng/mlDDU (0-234) 04/25/17 07:49 Sodium 143 mmol/L (137-145) 04/27/17 06:25 Potassium 4.6 mmol/L (3.6-5.0) 04/27/17 06:25 Chloride 103.3 mmol/L (98-107) 04/27/17 06:25 Carbon Dioxide 23 mmol/L (22-30) 04/27/17 06:25 Anion Gap 21 mmol/L 04/27/17 06:25 BUN 55 mg/dL (7-17) H 04/27/17 06:25 Creatinine 1.6 mg/dL (0.7-1.2) H 04/27/17 06:25 Estimated GFR 39 ml/min 04/27/17 06:25 BUN/Creatinine Ratio 34 % 04/27/17 06:25 Glucose 129 mg/dL (65-100) H 04/27/17 06:25 POC Glucose 115 (70-105) H 04/27/17 07:55 Lactic Acid 2.70 mmol/L (0.7-2.0) H* 04/24/17 21:09 Calcium 8.6 mg/dL (8.4-10.2) 04/27/17 06:25 Total Bilirubin 0.20 mg/dL (0.1-1.2) 04/24/17 21:09 AST 31 units/L (5-40) 04/24/17 21:09 ALT 18 units/L (7-56) 04/24/17 21:09 Alkaline Phosphatase 92 units/L (35-129) 04/24/17 21:09 Ammonia 27.0 umol/L (25-60) 04/24/17 21:09 Total Creatine Kinase 67 units/L (30-135) 04/25/17 07:49 CK-MB (CK-2) 1.8 ng/mL (0.0-4.0) 04/25/17 07:49 CK-MB (CK-2) Rel Index 2.6 (0-4) 04/25/17 07:49 Troponin T < 0.010 ng/mL (0.00-0.029) 04/25/17 07:49 Total Protein 7.8 g/dL (6.3-8.2) 04/24/17 21:09 Albumin 3.4 g/dL (3.9-5) L 04/24/17 21:09 Albumin/Globulin Ratio 0.8 % 04/24/17 21:09 Urine Color Yellow (Yellow) 04/24/17 22:21 Urine Turbidity Clear (Clear) 04/24/17 22:21 Urine pH 6.0 (5.0-7.0) 04/24/17 22:21 Ur Specific [place] 1.010 (1.003-1.030) 04/24/17 22:21 Urine Protein <15 mg/dl mg/dL (Negative) 04/24/17 22:21 Urine Glucose (UA) Neg mg/dL (Negative) 04/24/17 22:21 Urine Ketones Neg mg/dL (Negative) 04/24/17 22:21 Urine Blood Neg (Negative) 04/24/17 22:21 Urine Nitrite Neg (Negative) 04/24/17 22:21 Urine Bilirubin Neg (Negative) 04/24/17 22:21 Urine Urobilinogen < 2.0 mg/dL (<2.0) 04/24/17 22:21 Ur Leukocyte Esterase Neg (Negative) 04/24/17 22:21 Urine WBC (Auto) 1.0 /HPF (0.0-6.0) 04/24/17 22:21 Urine RBC (Auto) 2.0 /HPF (0.0-6.0) 04/24/17 22:21 U Epithel Cells (Auto) 1.0 /HPF (0-13.0) 04/24/17 22:21 <EVY CARMEN M - Last Filed: 04/27/17 19:07> Assessment and Plan Assessment and plan: I saw and evaluated the patient. I agree with the findings and the plan of care as documented in the Nurse Practitioner's progress note. Hospitalist Physical - Constitutional Vitals: Temp Pulse Resp BP Pulse Ox 98.9 F 59 L 19 128/77 92 04/27/17 04:08 04/27/17 18:07 04/27/17 04:08 04/27/17 18:07 04/27/17 04:08 Results - Labs CBC & Chem 7: 04/26/17 05:30 04/27/17 06:25 Labs: Laboratory Last Values WBC 5.4 K/mm3 (4.5-11.0) 04/26/17 05:30 RBC 3.97 M/mm3 (3.65-5.03) 04/26/17 05:30 Hgb 11.6 gm/dl (10.1-14.3) 04/26/17 05:30 Hct 34.5 % (30.3-42.9) 04/26/17 05:30 MCV 87 fl (79-97) 04/26/17 05:30 MCH 29 pg (28-32) 04/26/17 05:30 MCHC 34 % (30-34) 04/26/17 05:30 RDW 12.6 % (13.2-15.2) L 04/26/17 05:30 Plt Count 193 K/mm3 (140-440) 04/26/17 05:30 Lymph % (Auto) 41.3 % (13.4-35.0) H 04/26/17 05:30 [place] % (Auto) 13.2 % (0.0-7.3) H 04/26/17 05:30 Eos % (Auto) 2.5 % (0.0-4.3) 04/26/17 05:30 Baso % (Auto) 0.4 % (0.0-1.8) 04/26/17 05:30 Lymph # 2.2 K/mm3 (1.2-5.4) 04/26/17 05:30 [place] # 0.7 K/mm3 (0.0-0.8) 04/26/17 05:30 Eos # 0.1 K/mm3 (0.0-0.4) 04/26/17 05:30 Baso # 0.0 K/mm3 (0.0-0.1) 04/26/17 05:30 Seg Neutrophils % 42.6 % (40.0-70.0) 04/26/17 05:30 Seg Neutrophils # 2.3 K/mm3 (1.8-7.7) 04/26/17 05:30 D-Dimer 182.55 ng/mlDDU (0-234) 04/25/17 07:49 Sodium 143 mmol/L (137-145) 04/27/17 06:25 Potassium 4.6 mmol/L (3.6-5.0) 04/27/17 06:25 Chloride 103.3 mmol/L (98-107) 04/27/17 06:25 Carbon Dioxide 23 mmol/L (22-30) 04/27/17 06:25 Anion Gap 21 mmol/L 04/27/17 06:25 BUN 55 mg/dL (7-17) H 04/27/17 06:25 Creatinine 1.6 mg/dL (0.7-1.2) H 04/27/17 06:25 Estimated GFR 39 ml/min 04/27/17 06:25 BUN/Creatinine Ratio 34 % 04/27/17 06:25 Glucose 129 mg/dL (65-100) H 04/27/17 06:25 POC Glucose 268 (70-105) H 04/27/17 16:38 Lactic Acid 2.70 mmol/L (0.7-2.0) H* 04/24/17 21:09 Calcium 8.6 mg/dL (8.4-10.2) 04/27/17 06:25 Total Bilirubin 0.20 mg/dL (0.1-1.2) 04/24/17 21:09 AST 31 units/L (5-40) 04/24/17 21:09 ALT 18 units/L (7-56) 04/24/17 21:09 Alkaline Phosphatase 92 units/L (35-129) 04/24/17 21:09 Ammonia 27.0 umol/L (25-60) 04/24/17 21:09 Total Creatine Kinase 67 units/L (30-135) 04/25/17 07:49 CK-MB (CK-2) 1.8 ng/mL (0.0-4.0) 04/25/17 07:49 CK-MB (CK-2) Rel Index 2.6 (0-4) 04/25/17 07:49 Troponin T < 0.010 ng/mL (0.00-0.029) 04/25/17 07:49 Total Protein 7.8 g/dL (6.3-8.2) 04/24/17 21:09 Albumin 3.4 g/dL (3.9-5) L 04/24/17 21:09 Albumin/Globulin Ratio 0.8 % 04/24/17 21:09 Urine Color Yellow (Yellow) 04/24/17 22:21 Urine Turbidity Clear (Clear) 04/24/17 22:21 Urine pH 6.0 (5.0-7.0) 04/24/17 22:21 Ur Specific [place] 1.010 (1.003-1.030) 04/24/17 22:21 Urine Protein <15 mg/dl mg/dL (Negative) 04/24/17 22:21 Urine Glucose (UA) Neg mg/dL (Negative) 04/24/17 22:21 Urine Ketones Neg mg/dL (Negative) 04/24/17 22:21 Urine Blood Neg (Negative) 04/24/17 22:21 Urine Nitrite Neg (Negative) 04/24/17 22:21 Urine Bilirubin Neg (Negative) 04/24/17 22:21 Urine Urobilinogen < 2.0 mg/dL (<2.0) 04/24/17 22:21 Ur Leukocyte Esterase Neg (Negative) 04/24/17 22:21 Urine WBC (Auto) 1.0 /HPF (0.0-6.0) 04/24/17 22:21 Urine RBC (Auto) 2.0 /HPF (0.0-6.0) 04/24/17 22:21 U Epithel Cells (Auto) 1.0 /HPF (0-13.0) 04/24/17 22:21
[2017-04-27] MEDS ORDERED: LEXISCAN IV ONE ×2 (12:49→12:51)
--- NOTE | 2017-04-27 14:46 | Progress Note ---
Assessment and Plan - Patient Problems (1) Altered mental status Current Visit: Yes Status: Acute Plan to address problem: Persantine thallium stress test completed, normal myocardial perfusion study. Subjective Date of service: 04/27/17 Interval history: Patient is comfortable, no cardiac complaints. Persantine thallium stress test completed, normal myocardial perfusion study. Objective Vital Signs Temp Pulse Resp BP BP Pulse Ox 04/27/17 13:02 89 148/75 04/27/17 13:01 89 140/76 04/27/17 13:00 90 142/68 04/27/17 12:59 90 120/67 04/27/17 12:58 76 162/84 04/27/17 12:56 67 164/82 04/27/17 04:08 98.9 F 71 19 123/57 92 04/27/17 00:00 99.1 F 77 18 145/65 98 04/26/17 20:00 75 04/26/17 19:55 98.2 F 75 18 152/64 96 04/26/17 17:51 70 161/70 98 04/26/17 17:50 76 161/70 04/26/17 17:00 76 04/26/17 15:58 98.1 F 18 155/68 04/26/17 15:43 97 - Physical Examination General: No Apparent Distress HEENT: Positive: PERRL Neck: Positive: neck supple, trachea midline Cardiac: Positive: Reg Rate and Rhythm Lungs: Positive: clear to auscultation Neuro: Positive: Grossly Intact Abdomen: Positive: Soft, Active Bowel Sounds. Negative: Tender, Distended Skin: Positive: Clear Incision: Cardiac Cath Site Musculoskeletal: No Pain, Normal Range of Motion Extremities: Absent: edema - Labs and Meds Comprehensive Metabolic Panel 04/27/17 Range/Units 06:25 Sodium 143 (137-145) mmol/L Potassium 4.6 (3.6-5.0) mmol/L Chloride 103.3 (98-107) mmol/L Carbon Dioxide 23 (22-30) mmol/L BUN 55 H (7-17) mg/dL Creatinine 1.6 H (0.7-1.2) mg/dL Glucose 129 H (65-100) mg/dL Calcium 8.6 (8.4-10.2) mg/dL - Imaging and Cardiology EKG: image reviewed
[2017-04-27] MEDS: IMDUR PO SCH (15:25)
[2017-04-27] MEDS: TYLENOL PO PRN (15:25)
[2017-04-27] MEDS: ALDACTONE PO SCH ×2 (15:26→21:41)
[2017-04-27] MEDS: LASIX PO SCH (15:26)
[2017-04-27] MEDS: PRAVACHOL PO SCH (15:26)
[2017-04-27] MEDS: FEOSOL PO SCH (15:27)
[2017-04-27] MEDS: BABY ASPIRIN PO SCH (15:27)
[2017-04-27] MEDS: NACL 0.9% 1000 ML 1,000 ML IV SCH (15:29)
[2017-04-27] MEDS: COREG PO SCH ×2 (15:30→21:41)
[2017-04-27] MEDS: LOVENOX SUB-Q SCH (15:36)
[2017-04-27] MEDS: PROTONIX PO SCH ×2 (15:36→21:41)
[2017-04-27] MEDS: LANOXIN PO SCH (18:07)
[2017-04-27] MEDS: LEVEMIR SUB-Q SCH (21:41)
[2017-04-27] MEDS: REMERON PO SCH (21:46)
[2017-04-28] MEDS: NACL 0.9% 1000 ML 1,000 ML IV SCH (05:40)
--- NOTE | 2017-04-28 07:02 | Treadmill Report ---
THALLIUM STRESS TEST LEFT VENTRICLE: Left ventricular chamber size is within normal spread. Perfusion study demonstrates homogeneous uptake of the tracer in all segments, no significant perfusion defects identified. Gated analysis demonstrates normal left ventricular systolic function, ejection fraction 57%. CONCLUSION: Normal myocardial perfusion study. JOB# [id number] CA/NTS
[2017-04-28 07:48] LABS: Eosinophils % (Auto) 2.5 % (0.0-4.3); Hematocrit 35.7 % (30.3-42.9); Hemoglobin 11.5 gm/dl (10.1-14.3); Mean Corpuscular HGB Conc 32 % (30-34); Mean Corpuscular Hemoglobin 28 pg (28-32); Mean Corpuscular Volume 87 fl (79-97); Platelet Count 207 K/mm3 (140-440); Red Blood Count 4.09 M/mm3 (3.65-5.03); Red Cell Distribution Width 13.1 % (13.2-15.2); White Blood Count 6.4 K/mm3 (4.5-11.0)
[2017-04-28 08:02] LABS: Calcium 8.4 mg/dL (8.4-10.2); Chloride 105.6 mmol/L (98-107); Potassium 4.8 mmol/L (3.6-5.0)
--- NOTE | 2017-04-28 09:22 | Discharge Summary ---
Providers - Providers Date of Admission: 04/25/17 01:56 Date of discharge: 04/28/17 Attending physician: EVY CARMEN MD 04/25/17 01:56 Consult to Physician [CONS] Routine Consulting Provider: ISMAEL CLAROS Reason For Exam: syncope Place consult to:: CARDIOLOGY Notified:: Y Was contact made?: Yes If yes, spoke with:: DR CARDONA Time called:: 08:45 04/28/17 08:43 Physical Therapy Evaluation and Treat [CONS] Routine Comment: Reason For Exam: Dysequilibrium 04/28/17 08:44 Occupational Therapy Evaluate and Treat [CONS] Routine Comment: Reason For Exam: dysequilibrium Primary care physician: [employer] Hospitalization Reason for admission: Syncope Condition: Stable Hospital course: Patient is a 71-year-old male with a history of dementia, after lifting a diabetes, CHF, hypertension, coronary heart disease was brought to the emergency room because she had a syncopal episode. Patient was diagnosed with syncope, Altered mental status, coronary artery disease, Dehydration, Diabetes mellitus and hypertension.Patient presented with syncope, ACS was and CVA ruled out, Thallium stress test normal myocardial perfusion with ef of 57%, negative cardiac enzymes, ECGs shows normal sinus rythm, CXR WNL. Head CT showed moderate central atrophy and chronic ischemia, no acute intracranial process.Pacemaker interrogated showed true tachycardia [employer]. Patient syncope due atrial tachycardia and dehydration. Patient alert and oriented to person and place which is her baseline per her family.She has dementia. She was treated with IV fluid hydration and antihypertensive medications. Patient is clinically improved and stable for discharge. Patient advised to follow-up with her primary care provider. Discharge Diagnosed Syncope Altered mental status Coronary artery disease Dehydration Diabetes mellitus Hypertension Disposition: DC-01 TO HOME OR SELFCARE Time spent for discharge: 33 minutes Core Measure Documentation - Palliative Care Palliative Care/ Comfort Measures: Not Applicable - Core Measures Any of the following diagnoses?: none Exam - Constitutional Vitals: Temp Pulse Resp BP Pulse Ox 97.8 F 65 20 139/71 100 04/28/17 05:59 04/28/17 05:59 04/28/17 05:59 04/28/17 05:59 04/28/17 05:59 General appearance: Present: no acute distress, well-nourished, other (confused) - EENT Eyes: Present: PERRL ENT: hearing intact, clear oral mucosa - Neck Neck: Present: supple, normal ROM - Respiratory Respiratory effort: normal Respiratory: bilateral: CTA - Cardiovascular Heart Sounds: Present: S1 & S2. Absent: rub, click - Extremities Extremities: pulses symmetrical, No edema Peripheral Pulses: within normal limits - Abdominal General gastrointestinal: Present: soft, non-tender, non-distended, normal bowel sounds Female genitourinary: Present: normal - Integumentary Integumentary: Present: clear, warm, dry - Musculoskeletal Musculoskeletal: gait normal, strength equal bilaterally - Psychiatric Psychiatric: cooperative - Neurologic Neurologic: CNII-XII intact, moves all extremities - Allied Health Allied health notes reviewed: nursing Plan Diet: low fat, low cholesterol, low salt, diabetic Follow up with: PRIMARY CARE, [Primary Care Provider] - 3-5 Days
[2017-04-28] MEDS: NOVOLOG SUB-Q SCH ×2 (10:20→13:00)
[2017-04-28] MEDS: TYLENOL PO PRN (10:22)
[2017-04-28] MEDS: BABY ASPIRIN PO SCH (10:23)
[2017-04-28] MEDS: PROTONIX PO SCH (10:23)
[2017-04-28] MEDS: LASIX PO SCH (10:23)
[2017-04-28] MEDS: FEOSOL PO SCH (10:24)
[2017-04-28] MEDS: ALDACTONE PO SCH (10:24)
[2017-04-28] MEDS: LOVENOX SUB-Q SCH (10:25)
[2017-04-28] MEDS: COREG PO SCH (10:25)
[2017-04-28] MEDS: IMDUR PO SCH (10:25)
--- NOTE | 2017-04-28 10:45 | Query- General ---
Deaelaine Mai Ramon Date:___04/28/17 Deputy Sheriff Custody/CDS: [place] Phone#:___[phone] Exercise your independent professional judgment when responding to this query. Questions asked do not imply a particular answer is desired or expected. We greatly appreciate your clarification on this issue. Clinical Documentation States: 71 year old female was admitted on 04/25/17 The Progress note (Dr. Navarro 04/27/17) states " Patient is a 71-year-old male with a history of dementia, after lifting a diabetes, CHF, hypertension, coronary heart disease was brought to the emergency room because she had a syncopal episode Syncope Near syncopal episode Patient syncopal episode symptoms have resolved at present time. " Clinical Findings Show (include reference to source document): BMI: 58.6 Given the above clinical scenario can you please provide an appropriate diagnosis based on your knowledge of the patient: PHYSICIAN RESPONSE: [ ] Obesity [ x] Morbid obesity [ ] Other (Please specify) [ ] Clinically undeterminable Present on Admission: [x ] Yes (Y) [ ] Clinically undeterminable (W) [ ]No(N) Please also document response in your Progress Notes and/or Discharge Summary and indicate if the condition was present on admission. MTDD
--- NOTE | 2017-04-28 11:27 | Progress Note ---
Assessment and Plan Alteration of mental status Presence of Pacemaker Hx of CAD with remote CABG normal myocardial perfusion study this admission Hx of Cardiomyopathy EF 20-25% on echo 09/2016 at [facility] Diabetes Conservative cardiac management. Subjective Date of service: 04/28/17 Interval history: Patient has no cardiac complaints. Objective Vital Signs Temp Pulse Resp BP Pulse Ox 04/28/17 10:25 63 154/69 04/28/17 10:24 63 154/69 04/28/17 05:59 97.8 F 65 20 139/71 100 04/28/17 01:00 66 04/28/17 00:31 98.2 F 73 18 117/55 97 04/27/17 20:29 98.0 F 18 100/54 04/27/17 18:07 59 L 128/77 04/27/17 15:30 67 161/66 04/27/17 15:26 67 161/66 04/27/17 15:25 67 161/66 04/27/17 13:02 89 148/75 04/27/17 13:01 89 140/76 04/27/17 13:00 90 142/68 04/27/17 12:59 90 120/67 04/27/17 12:58 76 162/84 04/27/17 12:56 67 164/82 - Physical Examination General: No Apparent Distress HEENT: Positive: PERRL Cardiac: Positive: Reg Rate and Rhythm Neuro: Positive: Grossly Intact - Labs and Meds CBC 04/28/17 Range/Units 06:49 WBC 6.4 (4.5-11.0) K/mm3 RBC 4.09 (3.65-5.03) M/mm3 Hgb 11.5 (10.1-14.3) gm/dl Hct 35.7 (30.3-42.9) % Plt Count 207 (140-440) K/mm3 Lymph # 2.6 (1.2-5.4) K/mm3 [place] # 0.7 (0.0-0.8) K/mm3 Eos # 0.2 (0.0-0.4) K/mm3 Baso # 0.1 (0.0-0.1) K/mm3 Comprehensive Metabolic Panel 04/28/17 Range/Units 06:49 Sodium 142 (137-145) mmol/L Potassium 4.8 (3.6-5.0) mmol/L Chloride 105.6 (98-107) mmol/L Carbon Dioxide 23 (22-30) mmol/L BUN 57 H (7-17) mg/dL Creatinine 1.6 H (0.7-1.2) mg/dL Glucose 168 H (65-100) mg/dL Calcium 8.4 (8.4-10.2) mg/dL - Imaging and Cardiology EKG: image reviewed
[2017-04-28] MEDS: PRAVACHOL PO SCH (13:43)
[2017-04-28 13:55] VITALS: BP 105/54
== END 2017-04-28 15:00 | disposition home or self-care (01) | DRG 884 ==
LOC: ED 20:14 → 4A 04-25 01:56
PROVIDERS: ADMIT Internal Medicine; ATTEND Internal Medicine
PROC: 4B02XSZ Measurement of Cardiac Pacemaker, External Approach (ICD-10-PCS; principal; 2017-04-24)
DX: F03.90 Unspecified dementia, unspecified severity, without behavioral disturbance, psychotic disturbance, mood disturbance, and anxiety (principal); I47.1 Supraventricular tachycardia; Z68.43 Body mass index [BMI] 50.0-59.9, adult; R55 Syncope and collapse; I25.10 Atherosclerotic heart disease of native coronary artery without angina pectoris; E86.0 Dehydration; E11.9 Type 2 diabetes mellitus without complications; K21.9 Gastro-esophageal reflux disease without esophagitis; E66.01 Morbid (severe) obesity due to excess calories; E78.5 Hyperlipidemia, unspecified; F17.200 Nicotine dependence, unspecified, uncomplicated; I11.0 Hypertensive heart disease with heart failure; Z95.0 Presence of cardiac pacemaker; Z82.49 Family history of ischemic heart disease and other diseases of the circulatory system; Z79.82 Long term (current) use of aspirin; Z79.899 Other long term (current) drug therapy; Z79.811 Long term (current) use of aromatase inhibitors; I25.2 Old myocardial infarction; Z86.711 Personal history of pulmonary embolism; Z79.01 Long term (current) use of anticoagulants
CPT/HCPCS: 36415; 70450; 71010; 78452; 80048; 80053; 81001; 82140; 82550; 82553; 82962; 84484; 85025; 85379; 93005; 93010; 93017; 99285; A9270-GY; A9502; J1650; J1815; J1818; J2785; J7030

== ENCOUNTER 2017-05-03 10:53 | Emergency (ER) | payer MEDICARE ==
[2017-05-03] MEDS ORDERED: NACL 0.9% 1000 ML 1,000 ML IV ONE (11:17)
--- NOTE | 2017-05-03 11:22 | Emergency Department Report ---
ED Abdominal Pain HPI - General Stated Complaint: ABDOMINAL PAIN LLQ Time Seen by Provider: 05/03/17 11:13 - History of Present Illness Initial Comments: Patient is 71 years old female history of dementia, congestive heart failure recently was discharged from the hospital for syncopal episode in a pacemaker interrogation. Patient stated that this morning she started having abdominal pain and 2 episodes off diarrhea and she was sent from the senior care for evaluation of diarrhea. Patient denied any nausea or vomiting. She denied fever cough or chest pain. MD Complaint: abdominal pain -: This morning Location: diffuse Radiation: none Migration to: no migration Severity scale (0 -10): 3 Quality: cramping Associated Symptoms: diarrhea - Related Data Home Medications Medication Instructions Recorded Confirmed Last Taken Furosemide [Lasix] 40 mg PO DAILY 10/23/14 04/25/17 04/24/17 Acetaminophen [Non-Aspirin] 650 mg PO Q6H 04/25/17 04/25/[address] [Depakote Dr] 125 mg PO BID 04/25/17 04/25/17 Unknown Exelon Patch 4.6mg/24hr 4.6 mg TD DAILY 04/25/17 04/25/17 Unknown Insulin Glargine,Hum.rec.anlog 9 units SQ QHS 04/25/17 04/25/17 Unknown [Lantus] Insulin Lispro [Humalog] 5 unit SQ AC 04/25/17 04/25/17 Unknown Lisinopril [Prinivil] 5 mg PO DAILY 04/25/17 04/25/17 Unknown Memantine HCl [Namenda Xr] 14 mg PO QHS 04/25/17 04/25/17 Unknown Metoprolol [Lopressor TAB] 6.25 mg PO BID 04/25/17 04/25/17 Unknown Oxybutynin Chloride [Ditropan Xl] 15 mg PO QDAY 04/25/17 04/25/17 04/24/17 Potassium Chloride [Klor-Con] 20 meq PO DAILY 04/25/17 04/25/17 Unknown Pravastatin [Pravachol] 20 mg PO QHS 04/25/17 04/25/17 Unknown QUEtiapine [SEROquel] 25 mg PO BID 04/25/17 04/26/17 Unknown Previous Rx's Medication Instructions Recorded Last Taken Type Aspirin [Aspirin BABY CHEW TAB] 81 mg PO QDAY #30 tab.chew 04/13/15 Unknown Rx Carvedilol [Coreg] 25 mg PO BID tablet 04/28/17 Unknown Rx Digoxin [Lanoxin] 0.125 mg PO DAILY@1700 tablet 04/28/17 Unknown Rx Ferrous Sulfate [Feosol 325 MG tab] 325 mg PO QDAY tablet 04/28/17 Unknown Rx ISOSORBIDE MONOnitrate [Imdur ER] 30 mg PO DAILY tablet 04/28/17 Unknown Rx Insulin Detemir [Levemir] 35 units SUB-Q QHS units 04/28/17 Unknown Rx Magnesium Hydroxide [Milk of 30 ml PO Q4H PRN oral.liqd 04/28/17 Unknown Rx Magnesia] Mirtazapine [Remeron] 30 mg PO QHS tablet 04/28/17 Unknown Rx Pantoprazole [Protonix TAB] 20 mg PO BID tablet. 04/28/17 Unknown Rx Pravastatin [Pravachol] 10 mg PO QDAY tablet 04/28/17 Unknown Rx Spironolactone [Aldactone] 25 mg PO BID tablet 04/28/17 Unknown Rx clonazePAM [KlonoPIN] 0.5 mg PO Q6H PRN tablet 04/28/17 Unknown Rx Allergies Allergy/AdvReac Type Severity Reaction Status Date / Time No Known Allergies Allergy Verified 04/11/15 17:17 ED Review of Systems ROS: Stated complaint: ABDOMINAL PAIN LLQ Other details as noted in HPI Comment: All other systems reviewed and negative Constitutional: denies: chills, fever Respiratory: denies: cough, orthopnea, shortness of breath, SOB with exertion, SOB at rest Cardiovascular: denies: chest pain, palpitations, dyspnea on exertion, orthopnea , edema, syncope, paroxysmal nocturnal dyspnea Gastrointestinal: abdominal pain, diarrhea. denies: nausea, vomiting, constipation, hematemesis, melena, hematochezia Musculoskeletal: denies: back pain Skin: denies: rash Neurological: denies: headache, weakness, numbness, paresthesias, confusion, abnormal gait, vertigo ED Past Medical Hx - Past Medical History Hx Hypertension: Yes Hx Heart Attack/AMI: Yes Hx Congestive Heart Failure: Yes Hx Diabetes: Yes Hx Pulmonary Embolism: Yes Hx GERD: Yes Hx Seizures: No Hx Dementia: Yes Additional medical history: HLD, CAD. ANEMIA - Surgical History Hx Open Heart Surgery: Yes Hx Pacemaker: Yes Additional Surgical History: pacemaker, bypass - Social History Smoking Status: Former Smoker - Medications Home Medications: Home Medications Medication Instructions Recorded Confirmed Last Taken Type Furosemide [Lasix] 40 mg PO DAILY 10/23/14 04/25/17 04/24/17 History Aspirin [Aspirin BABY CHEW TAB] 81 mg PO QDAY #30 tab.chew 04/13/15 04/25/17 Unknown Rx Acetaminophen [Non-Aspirin] 650 mg PO Q6H 04/25/17 04/25/17 Unknown History Divalproex [Mono Belcher] 125 mg PO BID 04/25/17 04/25/17 Unknown History Exelon Patch 4.6mg/24hr 4.6 mg TD DAILY 04/25/17 04/25/17 Unknown History Insulin Glargine,Hum.rec.anlog 9 units SQ QHS 04/25/17 04/25/17 Unknown History [Lantus] Insulin Lispro [Humalog] 5 unit SQ AC 04/25/17 04/25/17 Unknown History Lisinopril [Prinivil] 5 mg PO DAILY 04/25/17 04/25/17 Unknown History Memantine HCl [Namenda Xr] 14 mg PO QHS 04/25/17 04/25/17 Unknown History Metoprolol [Lopressor TAB] 6.25 mg PO BID 04/25/17 04/25/17 Unknown History Oxybutynin Chloride [Ditropan Xl] 15 mg PO QDAY 04/25/17 04/25/17 04/24/17 History Potassium Chloride [Klor-Con] 20 meq PO DAILY 04/25/17 04/25/17 Unknown History Pravastatin [Pravachol] 20 mg PO QHS 04/25/17 04/25/17 Unknown History QUEtiapine [SEROquel] 25 mg PO BID 04/25/17 04/26/17 Unknown History Carvedilol [Coreg] 25 mg PO BID tablet 04/28/17 Unknown Rx Digoxin [Lanoxin] 0.125 mg PO DAILY@1700 tablet 04/28/17 Unknown Rx Ferrous Sulfate [Feosol 325 MG tab] 325 mg PO QDAY tablet 04/28/17 Unknown Rx ISOSORBIDE MONOnitrate [Imdur ER] 30 mg PO DAILY tablet 04/28/17 Unknown Rx Insulin Detemir [Levemir] 35 units SUB-Q QHS units 04/28/17 Unknown Rx Magnesium Hydroxide [Milk of 30 ml PO Q4H PRN oral.liqd 04/28/17 Unknown Rx Magnesia] Mirtazapine [Remeron] 30 mg PO QHS tablet 04/28/17 Unknown Rx Pantoprazole [Protonix TAB] 20 mg PO BID tablet. 04/28/17 Unknown Rx Pravastatin [Pravachol] 10 mg PO QDAY tablet 04/28/17 Unknown Rx Spironolactone [Aldactone] 25 mg PO BID tablet 04/28/17 Unknown Rx clonazePAM [KlonoPIN] 0.5 mg PO Q6H PRN tablet 04/28/17 Unknown Rx ED Physical Exam - General Limitations: No Limitations General appearance: alert, in no apparent distress - Head Head exam: Present: atraumatic, normocephalic - Eye Eye exam: Present: normal appearance, PERRL - ENT ENT exam: Present: normal exam, normal orophraynx, mucous membranes moist - Neck Neck exam: Present: normal inspection, full ROM. Absent: meningismus, lymphadenopathy - Respiratory Respiratory exam: Present: normal lung sounds bilaterally. Absent: respiratory distress, wheezes, rales, rhonchi, chest wall tenderness, accessory muscle use, decreased breath sounds, prolonged expiratory - Cardiovascular Cardiovascular Exam: Present: regular rate, normal rhythm, normal heart sounds - GI/Abdominal GI/Abdominal exam: Present: soft, normal bowel sounds. Absent: distended, tenderness, guarding, rebound, rigid, organomegaly, mass, bruit, pulsatile mass , hernia - Extremities Exam Extremities exam: Present: normal inspection, normal capillary refill. Absent: tenderness - Back Exam Back exam: Present: normal inspection. Absent: tenderness, CVA tenderness (R), CVA tenderness (L) - Neurological Exam Neurological exam: Present: alert, oriented X3, CN II-XII intact, normal gait - Skin Skin exam: Present: warm, intact, normal color ED Course Vital Signs 05/03/17 12:04 Temperature 97.5 F L Pulse Rate 60 Respiratory 16 Rate Blood Pressure 127/67 [Right] O2 Sat by Pulse 98 Oximetry - Reevaluation(s) Reevaluation #1: 05/03/17 15:15 Patient stated that she is feeling better and she wanted to go back to her senior care. ED Medical Decision Making - Lab Data Result diagrams: 05/03/17 11:24 05/03/17 11:24 - Medical Decision Making Patient's abdominal pain completely resolved, labs review negative's of infection. Patient requested to go back to her senior care. Vital signs stable distress. Critical care attestation.: If time is entered above; I have spent that time in minutes in the direct care of this critically ill patient, excluding procedure time. ED Disposition Clinical Impression: Abdominal pain, Diarrhea Disposition: DC/TX-70 ANOTHER TYPE HLTHCARE Is pt being admited?: No Condition: Stable Instructions: Acute Diarrhea (ED)
[2017-05-03 11:40] LABS: Basophils % (Auto) 0.6 % (0.0-1.8); Eosinophils % (Auto) 3.7 % (0.0-4.3); Hemoglobin 11.9 gm/dl (10.1-14.3); Mean Corpuscular HGB Conc 33 % (30-34); Mean Corpuscular Hemoglobin 29 pg (28-32); Mean Corpuscular Volume 89 fl (79-97); Platelet Count 211 K/mm3 (140-440); Red Blood Count 4.06 M/mm3 (3.65-5.03); White Blood Count 6.1 K/mm3 (4.5-11.0)
[2017-05-03 11:59] LABS: Alanine Aminotransferase 15 units/L (7-56); Albumin 3.2 g/dL (3.9-5); Albumin/Globulin Ratio 0.7 %; Alkaline Phosphatase 76 units/L (35-129); Anion Gap 19 mmol/L; BUN/Creatinine Ratio 32; Blood Urea Nitrogen 61 mg/dL (7-17); Calcium 8.8 mg/dL (8.4-10.2); Carbon Dioxide 22 mmol/L (22-30); Chloride 106.1 mmol/L (98-107); Glucose 123 mg/dL (65-100); Lipase 32 units/L (13-60); Sodium 142 mmol/L (137-145); Total Protein 7.6 g/dL (6.3-8.2)
[2017-05-03 12:01] LABS: Bilirubin,Direct < 0.2 mg/dL (0-0.2)
[2017-05-03] MEDS ORDERED: MORPHINE IV ONE (13:37)
[2017-05-03] MEDS ORDERED: ZOFRAN IV ONE (13:37)
[2017-05-03] MEDS ORDERED: IMODIUM PO ONE (15:20)
[2017-05-03 17:21] VITALS: BP 162/78
--- NOTE | 2017-05-03 20:27 | XRay Report ---
FINAL REPORT EXAM: XR ABD SERIES W CXR 1V HISTORY: abdominal pain TECHNIQUE: Supine and upright abdomen and frontal view of the chest PRIORS: None. FINDINGS: Moderate amount of stool and gas present within the colon. No evidence of colonic or small bowel dilatation. No signs of free air. No abnormal calcifications are identified. Cardiac and mediastinal contours are unremarkable. No focal pulmonary infiltrate identified. No pleural fluid collection seen. Pulmonary vasculature is unremarkable. 2 lead pacemaker noted. There is evidence for prior cardiac surgery. IMPRESSION: Nonobstructive bowel gas pattern. No acute abnormality seen. No acute abnormality identified in the chest
== END 2017-05-03 17:18 | disposition other institution (70) ==
LOC: ED 10:53
DX: R10.9 Unspecified abdominal pain (principal); R19.7 Diarrhea, unspecified; I10 Essential (primary) hypertension; I50.9 Heart failure, unspecified; K21.9 Gastro-esophageal reflux disease without esophagitis; I25.2 Old myocardial infarction
CPT/HCPCS: 36415; 74022; 80048; 80074; 83690; 85007; 85025; 96361; 96374; 96375; 99285; J2270; J2405; J7030